=== PATIENT | female | born 1970 | race Caucasian/White ===

== ENCOUNTER 2016-11-12 10:16 | Emergency (ER) | payer SELFPAY ==
--- NOTE | ~2016-11-12 | ER ---
PATIENT'S NAME: ARLEEN COULTER [facility] AGE: 46 Y [address] ROOM: [place], [place] [address] LOCATION: ED ADMIT DATE: 11/12/2016 ER/Outpatient Report DISCHARGE DATE: 11/12/2016 FAMILY PHYSICIAN: PHYSICIAN, NO ATTENDING PHYSICIAN: Domenic South Time of Arrival: Time of Evaluation: Admission date and time documented in the medical record. I saw the patient at 1040 hours. CHIEF COMPLAINT: Open sore, drainage, umbilicus. Urinary frequency and incontinence, headache, and bilateral knee pain. HISTORY OF PRESENT ILLNESS: The patient is a 46-year-old female who presents with what sounds like stress incontinence with urinary frequency and losing her urine often over the past 3 months. She has also had an open sore, some reddening, and erythema of the umbilicus over the past week. She has had bilateral knee pain off and on for at least a month with no history of trauma or fall. She has kind of a generalized headache that she has had for about a month off and on. She also has a history of fibromyalgia, hypertension, and psychiatric issues. She has moved from [place] to [place] here recently. Denies any fever, chills, or sweats. No recent coughs, colds, or flus. No eyes, ears, nose, throat, neck, or spine pain. No chest pain, shortness of breath. Kind of some generalized abdominal pain off and on along with this umbilical open sore. She also has umbilical hernia, by history. The patient is overweight with a weight of about 270 pounds. She has had increasing knee pain. She is known to have some osteophytes and bone spurs in her knees. HOME MEDICATIONS: See attached medication list. ALLERGIES: PENICILLIN AND SULFA. SOCIAL HISTORY: The patient smokes a half a pack of cigarettes per day. Nondrinker. No illicit drug use. SIGNIFICANT PAST MEDICAL HISTORY: 1. Tobacco abuse. 2. Fibromyalgia. 3. Hypertension. 4. Degenerative disk disease. PATIENT'S NAME: ARLEEN [facility] AGE: 46 Y [address] ROOM: [place], [place] [address] LOCATION: ED ADMIT DATE: 11/12/2016 ER/Outpatient Report DISCHARGE DATE: 11/12/2016 FAMILY PHYSICIAN: PHYSICIAN, NO ATTENDING PHYSICIAN: Domenic South 5. Umbilical hernia. 6. Exogenous obesity. 7. Degenerative joint disease. 8. Degenerative osteoarthritis. 9. Psychiatric issues. 10. Mood disorder. PAST SURGICAL HISTORY: Operations: 1. Cholecystectomy. 2. Tubal ligation. 3. Right arm surgery. REVIEW OF SYSTEMS: All systems reviewed by me are negative with the exception of those discussed in the History of the Present Illness. PHYSICAL EXAMINATION: VITAL SIGNS: Pulse 93 and regular, respirations 20, blood pressure 127/87, and O2 saturation on room air is 95%. [place] Coma Scale is 15. HEENT: Head; normocephalic. No abrasion, contusion, laceration, or swelling of the scalp or face. Eyes; extraocular muscles intact. PERRL. Sclerae and conjunctivae are clear, nonicteric. Ears; clear TMs bilaterally. Nose; clear. Throat; clear. Mucous membranes moist. NECK: No nuchal rigidity. No thyromegaly or cervical lymphadenopathy. SPINE: Negative. LUNGS: Clear. Good air flow. No rales, rhonchi, or wheezes. HEART: Regular. Pulses are palpable. No chest wall or ribcage pain to palpation. ABDOMEN: Large, obese abdomen. Soft, nondistended, and some generalized tenderness to palpation. No true guarding or rigidity. No rebound tenderness. Active bowel tones. No organomegaly or abnormal masses palpable. No CVA tenderness. The patient's umbilicus is inflamed. There is an open sore with some drainage. Small umbilical hernia. EXTREMITIES: No peripheral edema, cyanosis, or deformity. No redness or swelling of the knees. Range of motion seems to be intact. NEUROLOGIC: Neurovascularly intact. SKIN: Clear other than she has old scars on her forearms from previous self inflicted cuts. IMPRESSION: 1. Open sore, umbilicus with surrounding erythema. Beginning cellulitis. 2. Exogenous obesity. 3. Stress incontinence. PATIENT'S NAME: ARLEEN [facility] AGE: 46 Y [address] ROOM: [place] [id number] LOCATION: [facility] ADMIT DATE: 11/12/2016 ER/Outpatient Report DISCHARGE DATE: 11/12/2016 FAMILY PHYSICIAN: PHYSICIAN, NO ATTENDING PHYSICIAN: Domenic South 4. Headache. 5. Degenerative osteoarthritis with degenerative joint disease of the knees bilaterally. PLAN: The patient was discharged to home. Observation. Activity as tolerated. Continue present home medications and care. Keep umbilical wound clean with daily soap and water. Apply Bactroban ointment twice a day. Clindamycin 300 mg 4 times a day. Encouraged her to lose weight which will help her back, her knees. Continue Tylenol or ibuprofen for headache. Follow up with personal physician in 7 to 10 days if no improvement. Discussion ensued with the patient concerning my findings and recommendations, she understands and agrees with the treatment plan. DOMENIC SOUTH MD SDS/modl /[id number] d: 11/12/16 1459 t: 11/16/16 0618, OUTPATIENT REPORT
== END 2016-11-12 11:20 | disposition disaster alternative care site (69) ==
LOC: GMED 10:16
DX: M17.0 Bilateral primary osteoarthritis of knee (principal); L53.9 Erythematous condition, unspecified; N39.3 Stress incontinence (female) (male); E66.09 Other obesity due to excess calories; R51 Headache; I10 Essential (primary) hypertension; F17.210 Nicotine dependence, cigarettes, uncomplicated; Z88.0 Allergy status to penicillin; Z88.2 Allergy status to sulfonamides; Z79.899 Other long term (current) drug therapy